=== PATIENT | female | born 1945 | race Caucasian/White ===

== ENCOUNTER 2018-01-29 13:34 | Emergency (ER) | payer OTHER, SELFPAY ==
[2018-01-29 13:36] VITALS: BP 174/77; PULSE 74; RESP 15; TEMP 36.9; O2SAT 97; BMI 32.6
--- NOTE | 2018-01-29 13:57 | RAD_ITS ---
STUDY: X-RAY CHEST REASON FOR EXAM: Female, 72 years old. Palpitations TECHNIQUE: Portable frontal COMPARISON: None. FINDINGS: There is elevation of the right hemidiaphragm. There is no focal consolidation. Normal size heart. Normal mediastinum and debbi. Normal visualized pulmonary arteries. Normal visualized aortic arch and descending thoracic aorta. Normal visualized thoracic spine. Normal visualized ribs, clavicles, and shoulders. There is no demonstrated abnormality of the visualized soft tissue structures of the upper abdomen. RAD/Chest 1 View (Portable) IMPRESSION: No acute cardiopulmonary process. Electronically Signed: Mónica Cordoba MD at 14:35 EDT Tel , Service support ,
--- NOTE | 2018-01-29 13:57 | EKG12_ITS ---
Test Reason : PALPS Blood Pressure : / mmHG Vent. Rate : 074 BPM Atrial Rate : 074 BPM P-R Int : 182 ms QRS Dur : 090 ms QT Int : 400 ms P-R-T Axes : 054 004 030 degrees QTc Int : 444 ms Normal sinus rhythm Normal ECG Confirmed by MARY CROWDER, ROBER ([id number]), mapping editor SARAH MARTÍNEZ ([id number] on 01/31/2018 9:12:11 AM Referred By: Confirmed By:ROBER HERNANDEZ MD
--- NOTE | 2018-01-29 13:59 | ED.RN ---
NO OLD EKG'S IN MUSE.
[2018-01-29 14:13] LABS: Hematocrit 40.8 % (37-47); Hemoglobin 13.1 g/dl (12.0-15.0); Mean Corp Hgb Conc 32.1 g/gl (32-36); Mean Corpuscular Volume 90.5 fL (81-99); RBC Distribution Width CV 14.2 % (11.6-14.6); RBC Distribution Width SD 46.9 fl (35.1-43.9); Red Blood Count 4.51 M/mm3 (4.2-5.4); White Blood Count 5.4 K/mm3 (4.4-11.0)
[2018-01-29 14:14] LABS: Absolute Neutrophil Count 3.3 X10^3/uL (2.0-7.7); Basophil# 0.01 X10^3/uL; Basophil% 0.2 % (0-1); Eosinophil# 0.09 X10^3/uL; Eosinophils% 1.7 % (0-5); Lymphocyte % 31.7 % (19-41); Mean Platelet Vol. 9.2 fl (6.2-12.0); Monocyte# 0.28 X10^3/uL; Monocyte% 5.2 % (0-10); Neutrophil # 3.29 X10^3/uL (2.7-7.7); Neutrophil % 61.2 % (47-70); POSITIVE COUNT NO; POSITIVE DIFFERENTIAL NO; POSITIVE MORPHOLOGY NO; Platelet Count 231 K/mm3 (150-450)
[2018-01-29] MEDS: 0.9% Normal Saline 1,000 ML 150 ML IV (14:29)
[2018-01-29 14:31] VITALS: BP 141/81; PULSE 66; RESP 15; O2SAT 94
[2018-01-29 14:40] LABS: Anion Gap 7 (5-15); BUN 22 mg/dL (7-18); BUN/Creat Ratio 23.4 RATIO (10-20); Calcium,Total 9.3 mg/dL (8.5-10.1); Chloride 108 mmol/L (98-107); Creatinine, Serum 0.94 mg/dL (0.55-1.02); EST Glomerular Filtration Rate 62 mL/min (>60); Est Glom Filt Rate - Afr Amer 75 mL/min (>60); Estimated Creatinine Clearance 52.13 ml/min; Glucose 103 mg/dL (74-106); Potassium 3.8 mmol/L (3.5-5.1); Sodium Level 143 mmol/L (136-145); Thyroid Stim Hormone (TSH) 4.64 uIU/mL (0.358-3.74)
--- NOTE | 2018-01-29 15:13 | ED.VISSUMM ---
- ER Visit Summary Date of Service: 01/29/18 Chief Complaint: Palpitations History of Present Illness: The patient is a 72 F who is from the [place] area. She drove from [place] to [place] today. After arriving at her hotel she noted a fluttering sensation in her chest that lasted approximately 20 minutes. Symptoms did not feel as if her heart was racing. She did not have chest pain or feel she is going to pass out. During the episodes of heart fluttering she did check her blood pressure and heart rate. First recording is 141/83 with a heart rate of 104. Second reading is 169/101 the heart rate is 76. Patient denies history of arrhythmia. She has not had any medication changes recently. Past history is significant for diabetes, hypertension, and high cholesterol. Physical Examination: Blood pressure on arrival is 174/77, temperature 98.4, heart rate 74, respiratory rate 15, pulse ox 97% on room air. Patient sitting upright in bed no acute distress. She is alert and talkative. Head and neck examination is normal. Heart is regular rate and rhythm. Lung sounds are clear. Abdomen is soft nontender. Test Results: EKG is sinus at 74 with no sign of acute ischemia. Normal intervals are noted. Portable chest x-ray shows no acute process. CBC and chemistry studies are unremarkable. Troponin is negative. TSH is slightly elevated at 4.64. Emergency Department Course and Treatment: Patient had no further episodes while here in the emergency room. Cardiac monitoring has remained normal. Patient states she just went over labs with her doctor earlier this week. Plan was to repeat her thyroid studies in July. Patient is encouraged to return if symptoms recur. She is encouraged to follow-up with her primary care physician as well. Blood pressure at time of discharge is 137/72. Treatment Plan: [] Disposition: Discharge Impression: Palpitations This note was generated with [employer] dictation software. It may contain incorrect words, spelling, and punctuation that were not noted in review of the chart prior to signing ED Disposition - Plan for ED Patient: Chief Complaint: Palpitations Referrals: [facility] Doctor,Out of [Primary Care Provider] -
--- NOTE | 2018-01-29 15:17 | ED.DCSUM_ITS ---
- ER Visit Summary Date of Service: 01/29/18 Chief Complaint: Palpitations History of Present Illness: The patient is a 72 F who is from the [place] area. She drove from [place] to [place] today. After arriving at her hotel she noted a fluttering sensation in her chest that lasted approximately 20 minutes. Symptoms did not feel as if her heart was racing. She did not have chest pain or feel she is going to pass out. During the episodes of heart fluttering she did check her blood pressure and heart rate. First recording is 141/83 with a heart rate of 104. Second reading is 169/101 the heart rate is 76. Patient denies history of arrhythmia. She has not had any medication changes recently. Past history is significant for diabetes, hypertension, and high cholesterol. Physical Examination: Blood pressure on arrival is 174/77, temperature 98.4, heart rate 74, respiratory rate 15, pulse ox 97% on room air. Patient sitting upright in bed no acute distress. She is alert and talkative. Head and neck examination is normal. Heart is regular rate and rhythm. Lung sounds are clear. Abdomen is soft nontender. Test Results: EKG is sinus at 74 with no sign of acute ischemia. Normal intervals are noted. Portable chest x-ray shows no acute process. CBC and chemistry studies are unremarkable. Troponin is negative. TSH is slightly elevated at 4.64. Emergency Department Course and Treatment: Patient had no further episodes while here in the emergency room. Cardiac monitoring has remained normal. Patient states she just went over labs with her doctor earlier this week. Plan was to repeat her thyroid studies in July. Patient is encouraged to return if symptoms recur. She is encouraged to follow-up with her primary care physician as well. Blood pressure at time of discharge is 137/72. Treatment Plan: [] Disposition: Discharge Impression: Palpitations This note was generated with [employer] dictation software. It may contain incorrect words, spelling, and punctuation that were not noted in review of the chart prior to signing ED Disposition - Plan for ED Patient: Chief Complaint: Palpitations Referrals: [facility] Doctor,Out of [Primary Care Provider] -
--- NOTE | 2018-01-29 15:19 | ED.DEP ---
ED Disposition - Plan for ED Patient: Disposition: Home or Assisted Living Chief Complaint: Palpitations Instructions: ED Palpitations Referrals: [facility],Out of [Primary Care Provider] - 1 Week
[2018-01-29 15:38] VITALS: BP 137/72; PULSE 59; RESP 16; O2SAT 93
== END 2018-01-29 15:40 | disposition home or self-care (01) ==
PROVIDERS: Emergency Provider Emergency Medicine
DX: R00.2 Palpitations (principal); I10 Essential (primary) hypertension; E11.9 Type 2 diabetes mellitus without complications; E78.00 Pure hypercholesterolemia, unspecified; Z79.82 Long term (current) use of aspirin; Z79.84 Long term (current) use of oral hypoglycemic drugs; Z79.899 Other long term (current) drug therapy; Z87.891 Personal history of nicotine dependence
CPT/HCPCS: 71045; 80048; 84443; 84484; 85025; 93005; 96360; 99285; J7030; A4216